=== PATIENT | female | born 1950 | race Caucasian/White ===

== ENCOUNTER 2017-04-11 20:31 | Emergency (ER) | payer MEDICARE, BC ==
[~2017-04-11] VITALS: Ht 170.2 cm; Wt 97.6 kg
[~2017-04-11 20:31] MED LIST: ALRE0.2S3 EACH EYE; AMLO10TA2 PO; CITA10TA4 PO; CYCL1TAB29 PO; GLYB2.5T3 PO; HYDR25TA5 PO; LAMI200T PO; LEVO125T4 PO; LISI-515 PO; REST0.05 EACH EYE; SIMV40TA PO; TAFL0.00 EACH EYE
[2017-04-11 20:45] VITALS: BP 156/64; PULSE 66; RESP 16; TEMP 98.6; O2SAT 98
[2017-04-11] MEDS ORDERED: VITA100036 PO (20:58)
[2017-04-11] MEDS ORDERED: SACC1CAP3 PO (20:58)
[2017-04-11] MEDS ORDERED: CLIN1CAP6 PO (21:35)
--- NOTE | 2017-04-11 21:36 | PD ---
HPI Chief Complaint: Facial Pain or Swelling Time Seen by Provider: 21:20 Travel History International Travel<30 days: No Contact w/Intl Traveler<30days: No Traveled to known affect area: No History of Present Illness HPI 66 year old female presents emergency department for evaluation of left lower lip swelling 1 day. Patient reports approximately one week ago she had a biopsy of the left lower lip to diagnose possible Sjogren's. She reports she had sutures at the site which have already dissolved. She was not put on antibiotics after the procedure. She reports today she felt as if something was draining in her mouth when she looked at the biopsy site she had purulent drainage from it. She reports that swelling decreased at that point. She denies fever or chills. Symptoms severity mild. No aggravating or alleviating factors. Pain 3 out of 10. PFSH Past Medical History Arthritis: Yes Bipolar Disorder: Yes Cancer: Yes (SKIN CA) Cardiovascular Problems: Yes COPD: Yes Diabetes: Yes Patient Takes Glucophage: No Endocrine: Yes Genitourinary: No Hepatitis: No Hiatal Hernia: No Hypertension: Yes Immune Disorder: No Musculoskeletal: Yes Neurologic: No Psychiatric: Yes (BIPOLAR, SUICIDE ATTEMPTS) Reproductive: Yes (CYST ON LEFT OVARY) Respiratory: Yes Immunizations Current: Yes Sleep Apnea: Yes Thyroid Disease: Yes ?: Not Past Surgical History Abdominal Surgery: Yes (APPENDECTOMY, CHOLECYSTECTOMY, LAP BAND) AICD: No Cardiac Surgery: No Ear Surgery: No Endocrine Surgery: No Eye Surgery: No Genitourinary Surgery: No Gynecologic Surgery: Yes (C-SECTIONS X2, RIGHT BREAST BENIGN LUMP REMOVED) Joint Replacement: No Oral Surgery: Yes (WISDOM TEETH REMOVED) Pacemaker: No Thoracic Surgery: No Other Surgery: Yes Social History Alcohol Use: No Tobacco Use: No Substance Use: No Allergies-Medications (Allergen,Severity, Reaction): Coded Allergies: Demerol (Verified Allergy, Severe, Psychosis, 04/11/17) Requip (Verified Allergy, Severe, Nausea/Vomiting, 04/11/17) Risperdal (Verified Allergy, Severe, induced Parkinson's, 04/11/17) Uncoded Allergies: STEROIDS (Allergy, Unknown, 04/11/17) Reported Meds & Prescriptions Reported Meds & Active Scripts Active Reported Probiotic (Saccharomyces Boulardii) 250 Mg Cap 250 Mg PO BID Vitamin D3 (Cholecalciferol) 1,000 Unit Cap 1,000 Units PO DAILY Restasis Opth 0.05% (Cyclosporine Opth 0.05%) 0.05% Emul 1 Drop EACH EYE BID Alrex Opth Drops (Loteprednol Etabonate) 0.2 % Soln 1 Drop EACH EYE DAILY Zioptan Opth Drops (Tafluprost Opth Drops) 0.015 Mg/Ml Drops 1 Drop EACH EYE HS Lamictal (Lamotrigine) 200 Mg Tab 300 Mg PO BID Citalopram (Citalopram Hydrobromide) 10 Mg Tab 10 Mg PO HS Levothyroxine (Levothyroxine Sodium) 125 Mcg Tab 125 Mcg PO DAILY Simvastatin 40 Mg Tab 40 Mg PO AC BREAKFAST Lisinopril 20 Mg Tab 20 Mg PO DAILY Amlodipine (Amlodipine Besylate) 10 Mg Tab 10 Mg PO DAILY Hydrochlorothiazide 25 Mg Tab 25 Mg PO DAILY Glyburide 2.5 Mg Tab 2.5 Mg PO BID Take with meals at the same time each day Review of Systems Except as stated in HPI: all other systems reviewed are Neg General / Constitutional: No: Fever Eyes: No: Visual changes HENT: No: Headaches Cardiovascular: No: Chest Pain or Discomfort Respiratory: No: Shortness of Breath Physical Exam Narrative GENERAL: Well-nourished, well-developed patient. SKIN: Focused skin assessment warm/dry. HEAD: Normocephalic. MOUTH: Left lower lip swelling with small area of purulent discharge within the inner lip at the site of the biopsy. There is no active drainage currently. There is no fluctuance to indicate abscess. EYES: No scleral icterus. No injection or drainage. NECK: Supple, trachea midline. No JVD or lymphadenopathy. CARDIOVASCULAR: Regular rate and rhythm without murmurs, gallops, or rubs. RESPIRATORY: Breath sounds equal bilaterally. No accessory muscle use. Data Data Last Documented VS Vital Signs Date Time Temp Pulse Resp B/P Pulse Ox O2 Delivery O2 Flow Rate FiO2 04/11/17 20:45 98.6 66 16 156/64 98 MDM Medical Decision Making Medical Screen Exam Complete: Yes Emergency Medical Condition: Yes Differential Diagnosis The site infection, oral abscess Narrative Course 66 old female with chief complaint of left lower lip swelling. Patient reports purulent drainage from the site of the biopsy she had one week ago. Patient is well-appearing and nontoxic. On exam patient appears to have a mild surgical site infection of the lower lip. Possible abscess formation where that was sutured. Patient reports the area spontaneously drained earlier today. And a feeling fluctuance. Patient with clindamycin and instructed to follow up with surgeon. Diagnosis Primary Impression: Oral abscess Referrals: Primary Care Physician Additional Instructions: Take the antibiotics as prescribed. Follow-up with his surgeon who did the biopsy this week. Return to emergency department if he developed no worsening symptoms. Scripts Clindamycin 300 Mg [id number] Mg PO Q6H #40 CAP Prov:Lily Pryor 04/11/17 Disposition: 01 DISCHARGE HOME Condition: Stable Lily Pryor Apr 11, 2017 21:36
== END 2017-04-11 21:54 | disposition home or self-care (01) ==
LOC: PHEFT 20:31
DX: K12.2 Cellulitis and abscess of mouth (principal); E11.9 Type 2 diabetes mellitus without complications; I10 Essential (primary) hypertension; E07.9 Disorder of thyroid, unspecified; G47.30 Sleep apnea, unspecified; Z98.890 Other specified postprocedural states; Z79.84 Long term (current) use of oral hypoglycemic drugs; Z87.39 Personal history of other diseases of the musculoskeletal system and connective tissue; Z86.59 Personal history of other mental and behavioral disorders; Z86.79 Personal history of other diseases of the circulatory system; Z87.42 Personal history of other diseases of the female genital tract; Z87.09 Personal history of other diseases of the respiratory system
CPT/HCPCS: 99283

== ENCOUNTER 2017-07-23 18:52 | Emergency (ER) | payer MEDICARE, BC ==
[~2017-07-23] VITALS: Ht 170.2 cm; Wt 81.4 kg
[~2017-07-23 18:52] MED LIST changes: -ALRE0.2S3 EACH EYE; +CLIN1CAP6 PO; -CYCL1TAB29 PO; -GLYB2.5T3 PO; -HYDR25TA5 PO; -LISI-515 PO; -REST0.05 EACH EYE; +SACC1CAP3 PO; +VITA100036 PO
[2017-07-23 19:02] VITALS: BP 157/74; PULSE 70; RESP 16; TEMP 98.5; O2SAT 97
[2017-07-23] MEDS ORDERED: SYSTSOL EACH EYE (19:19)
--- NOTE | 2017-07-23 20:45 | PD ---
Data Data Last Documented VS Vital Signs Date Time Temp Pulse Resp B/P (MAP) Pulse Ox O2 Delivery O2 Flow Rate FiO2 07/23/17 19:02 98.5 70 16 157/74 (101) 97 Orders Orders Ed Discharge Order (07/23/17 21:00) MDM Supervised Visit with EDUARDO: Yes Narrative Course I, Dr. Modi, have reviewed the advance practice practitioner's documentation and am in agreement, met with the patient face to face, made the diagnosis, and the medical decision making was done by me. *My assessment and Findings: I was asked to assist exam with this patient. Her presenting Symptoms had resolved. Tonopen 21 right (unaffected) Tonopen 20 left (affected). Patient has normal light reflexion of both corneas. Vision intact. Discussed strict return to ED precautions. Scripts Erythromycin Opth Oint (Erythromycin Opth Oint) 5 Mg/Gm Oint 1 APPLIC LEFT EYE QID for Infection for 3 Days, #1 TUBE 0 Refills Prov: Sudeep,Daniellefransisco KRUEGERP 07/23/17 Disposition: 01 DISCHARGE HOME Condition: Stable Ham Modi MD Jul 23, 2017 20:45
[2017-07-23] MEDS ORDERED: ERYTOIN10 LEFT EYE (20:58)
--- NOTE | 2017-07-23 21:00 | PD ---
HPI . Left eye pain Chief Complaint: Eye Problems/Injury Time Seen by Provider: 19:41 Travel History International Travel<30 days: No Contact w/Intl Traveler<30days: No Traveled to known affect area: No History of Present Illness HPI 66-year-old female presents to the emergency department for evaluation of sudden onset of left eye pain. Patient has a history of Sjogren's syndrome and glaucoma. Patient states she was driving home from [place] today when suddenly her left eye became very dry. Patient has become equipped to handle acute onset of dry eye related to her autoimmune disease. She attempted to put artificial tears in her left eye while she was driving by the exacerbation of the left eye was so significant her eyelid started getting stuck on the eyeball. Patient stated the pain and dryness was so significant in her left eye when she got home that her immediately brought her to the emergency department. Patient states that she did have blurred vision at the height of the exacerbation however after applying the cool moist cloth and artificial tears to the left eye she feels like her vision is significantly better. Patient denies any other physiological complaint outside the left eye pain and dryness. PFSH Past Medical History Arthritis: Yes Bipolar Disorder: Yes Cancer: Yes (SKIN CA) Cardiovascular Problems: Yes (htn on med) COPD: Yes Diabetes: No (diet control) Patient Takes Glucophage: No Endocrine: Yes Genitourinary: No Hepatitis: No Hiatal Hernia: No Hypertension: Yes Immune Disorder: No Musculoskeletal: Yes Neurologic: No Psychiatric: Yes (BIPOLAR, SUICIDE ATTEMPTS) Reproductive: Yes (CYST ON LEFT OVARY) Respiratory: Yes Immunizations Current: Yes Sleep Apnea: Yes Thyroid Disease: Yes Tetanus Vaccination: Unknown Influenza Vaccination: No ?: Not Past Surgical History Abdominal Surgery: Yes (APPENDECTOMY, CHOLECYSTECTOMY, LAP BAND) AICD: No Cardiac Surgery: No Ear Surgery: No Endocrine Surgery: No Eye Surgery: No Genitourinary Surgery: No Gynecologic Surgery: Yes (C-SECTIONS X2, RIGHT BREAST BENIGN LUMP REMOVED) Hysterectomy: Yes Joint Replacement: No Oral Surgery: Yes (WISDOM TEETH REMOVED) Pacemaker: No Thoracic Surgery: No Other Surgery: Yes Social History Alcohol Use: No Tobacco Use: No Substance Use: No Allergies-Medications (Allergen,Severity, Reaction): Coded Allergies: meperidine (Verified Allergy, Severe, Psychosis, 07/23/17) risperidone (Verified Allergy, Severe, induced Parkinson's, 07/23/17) . ropinirole (Verified Allergy, Severe, Nausea/Vomiting, 07/23/17) . Uncoded Allergies: steroids (Allergy, Severe, burn, 07/23/17) .. Reported Meds & Prescriptions Reported Meds & Active Scripts Active Reported Systane Opth Drops (Polyethylene Glycol-Propylene Glycol Opth Drp) 0.4-0.3% Soln 1-2 Drop EACH EYE PRN PRN Probiotic (Saccharomyces Boulardii) 250 Mg Cap 250 Mg PO BID Vitamin D3 (Cholecalciferol) 1,000 Unit Cap 1,000 Units PO DAILY Zioptan Opth Drops (Tafluprost Opth Drops) 0.015 Mg/Ml Drops 1 Drop EACH EYE HS Lamictal (Lamotrigine) 200 Mg Tab 300 Mg PO BID Citalopram (Citalopram Hydrobromide) 10 Mg Tab 10 Mg PO HS Levothyroxine (Levothyroxine Sodium) 125 Mcg Tab 125 Mcg PO DAILY Simvastatin 40 Mg Tab 40 Mg PO AC BREAKFAST Review of Systems Except as stated in HPI: all other systems reviewed are Neg Physical Exam Narrative GENERAL: Well-nourished, well-developed 66-year-old female patient in no acute distress. Nontoxic appearing. SKIN: Focused skin assessment warm/dry. HEAD: Normocephalic. Atraumatic. EYES: Left eye injected. Upper eyelid on the left is red and and slightly edematous. Fluorescein dye uptake noted diffusely. PERRLA demonstrated, extraocular motions intact bilaterally. Visual acuity: Right eye 20/30, left eye 20/200, bilateral eyes 20/30 NECK: Supple, trachea midline. No JVD or lymphadenopathy. CARDIOVASCULAR: Regular rate and rhythm without murmurs, gallops, or rubs. RESPIRATORY: Breath sounds equal bilaterally. No accessory muscle use. GASTROINTESTINAL: Abdomen soft, non-tender, nondistended. MUSCULOSKELETAL: No cyanosis, or edema. BACK: Nontender without obvious deformity. No CVA tenderness. Data Data Last Documented VS Vital Signs Date Time Temp Pulse Resp B/P (MAP) Pulse Ox O2 Delivery O2 Flow Rate FiO2 07/23/17 19:02 98.5 70 16 157/74 (101) 97 MDM Medical Decision Making Medical Screen Exam Complete: Yes Emergency Medical Condition: Yes Differential Diagnosis Differential diagnoses include but not limited to dry exacerbation, corneal abrasion, closed angle glaucoma Narrative Course 66-year-old female presents emergency department for evaluation of sudden onset left eye dryness in pain. Visual acuity was assessed, proparacaine solution applied and tonometry assessed which shows interocular pressure on the right eye at 21 and interocular pressure in the left eye at 20. Patient states the vision in the left eye is slowly improving. Fluorescein dye and would lamp used to assess for corneal abrasion. Diffuse fluorescein dye uptake was noted. Patient states the pain and dryness has improved substantially since arrival to the ED. Patient will be discharged home with erythromycin ointment and instructions for supportive care to keep the eye hydrated. Diagnosis Primary Impression: Dry eye of left side Patient Instructions: Dry Eye Syndrome (ED), General Instructions Additional Instructions: Please return to emergency department if your symptoms return or worsen. Follow up with your primary care provider. Take medications as prescribed. To need to use artificial tears to keep the eye hydrated Med/Other Pt SpecificInfo: Prescription(s) given Scripts Erythromycin Opth Oint (Erythromycin Opth Oint) 5 Mg/Gm Oint 1 APPLIC LEFT EYE QID for Infection for 3 Days, #1 TUBE 0 Refills Prov: Danielle Sheets 07/23/17 Disposition: 01 DISCHARGE HOME Condition: Stable Danielle Sheets Jul 23, 2017 21:00
== END 2017-07-23 21:07 | disposition home or self-care (01) ==
LOC: PHEFT 18:52
DX: H04.122 Dry eye syndrome of left lacrimal gland (principal); J44.9 Chronic obstructive pulmonary disease, unspecified; I10 Essential (primary) hypertension; M35.00 Sjogren syndrome, unspecified; H40.9 Unspecified glaucoma
CPT/HCPCS: 99283